=== PATIENT | female | born 1995 | race Caucasian/White ===

== ENCOUNTER 2018-02-23 04:04 | Emergency (ER) | payer MEDICAID ==
[~2018-02-23] VITALS: Ht 167.6 cm; Wt 77.1 kg
[2018-02-23 04:10] VITALS: BP 148/92
[2018-02-23] MEDS ORDERED: LORazepam 1mg tab ORAL ONE (04:45)
[2018-02-23 05:10] VITALS: BP 141/90
[2018-02-23] MEDS ORDERED: ALPRAZOLAM0.25 MG ORAL (05:28)
[2018-02-23 05:30] VITALS: BP 141/90
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
== END 2018-02-23 05:36 | disposition home or self-care (01) ==
LOC: EMR 04:28
DX: F41.9 Anxiety disorder, unspecified (principal); F19.10 Other psychoactive substance abuse, uncomplicated
CPT/HCPCS: 99282